=== PATIENT | female | born 1960 | race Caucasian/White ===

== ENCOUNTER 2016-09-04 12:43 | Outpatient (CLI) | payer MEDICARE, MEDICAID ==
[2016-09-04 14:06] LABS: Anion Gap 12 mmol/L (10-20); BUN (Urea Nitrogen) 17 mg/dL (9.8-20.1); Calc. Creatinine Clearance 0 mL/min (70-130); Calcium 8.7 mg/dL (7.8-10.44); Carbon Dioxide 22 mmol/L (22-29); Chloride 112 mmol/L (98-107); Estimated GFR-MDRD 49
== END 2016-09-04 12:44 | disposition home or self-care (01) ==
LOC: NAV LAB 12:43
PROVIDERS: ATTEND Family Medicine
DX: N18.3 Chronic kidney disease, stage 3 (moderate) (principal)
CPT/HCPCS: 36415; 80048; 81001

== ENCOUNTER 2017-08-09 15:29 | Outpatient (CLI) | payer MEDICARE, MEDICAID ==
--- NOTE | 2017-08-09 17:05 | RAD ---
TWO VIEW CHEST: History: Pneumonia. Comparison: Portable film of 06-05-17. FINDINGS: Lungs are well aerated and clear of infiltrate. No effusion. Heart and mediastinum unremarkable with aortic calcification again noted. IMPRESSION: No evidence of focal infiltrate. POS: [facility]
== END 2017-08-09 15:30 | disposition home or self-care (01) ==
LOC: NAV RAD 15:29
PROVIDERS: ATTEND Family Medicine
DX: J18.9 Pneumonia, unspecified organism (principal)
CPT/HCPCS: 71020

== ENCOUNTER 2017-12-24 10:56 | Outpatient (CLI) | payer MEDICARE, MEDICAID ==
[2017-12-24 12:00] LABS: Anion Gap 16 mmol/L (10-20); BUN (Urea Nitrogen) 29 mg/dL (9.8-20.1); Calc. Creatinine Clearance 0 mL/min (70-130); Calcium 9.1 mg/dL (7.8-10.44); Carbon Dioxide 27 mmol/L (22-29); Chloride 106 mmol/L (98-107); Estimated GFR-MDRD 16; Glucose 92 mg/dL (70-105); Potassium 3.5 mmol/L (3.5-5.1); Sodium 145 mmol/L (136-145)
[2017-12-24 12:11] LABS: Eosinophils 5 % (0-10); Hypochromia SLIGHT = 6-15 cells (100X) (0-5/hpf); Lymphocytes 26 % (21-51); MDiff Complete? YES; Mean Corpuscular HGB CONC 31.9 g/dL (32.0-36.0); Mean Corpuscular Hemoglobin 30.2 pg (27.0-31.0); Mean Corpuscular Volume 94.6 fl (81.0-99.0); Mean Platelet Volume 7.4 fL (7.4-10.4); Microcytosis SLIGHT = 6-15 cells (100X) (0-5/hpf); Monocytes 6 % (0-10); Neutrophil 61 % (42-75); Platelet Count 269 thou/uL (130-400); Poikilocytosis SLIGHT = 6-15 cells (100X) (0-5/hpf); RBC Distribution Width 11.7 % (11.5-14.5); Red Blood Cell (RBC) Count 2.64 mill/uL (4.20-5.40)
[2017-12-24 12:17] LABS: ALT (SGPT) 29 U/L (8-55); AST (SGOT) 20 U/L (5-34); Albumin 3.4 g/dL (3.5-5.0); Alkaline Phosphatase 84 U/L (40-150); Bilirubin, Total 0.5 mg/dL (0.2-1.2); Globulin 2.6 g/dL (2.4-3.5)
--- NOTE | 2017-12-24 13:20 | RAD ---
CHEST TWO VIEWS: History: Dyspnea. Comparison: 12-15-17 FINDINGS: Cardiac silhouette is within normal limits. Pulmonary vasculature is now engorged with mild bilateral perihilar and bibasilar infiltrates. Mediastinum is midline with aortic calcification and post-opera tive changes of the cervicothoracic junction of the spine. IMPRESSION: Interval development of mild pulmonary edema. POS: [facility]
== END 2017-12-24 10:57 | disposition home or self-care (01) ==
LOC: NAV LAB 10:56
PROVIDERS: ATTEND Family Medicine
DX: R06.09 Other forms of dyspnea (principal); N17.9 Acute kidney failure, unspecified; R53.81 Other malaise; J81.1 Chronic pulmonary edema
CPT/HCPCS: 36415; 71046; 80053; 85025

== ENCOUNTER 2019-12-22 22:22 | Emergency (ER) | payer MEDICARE, MEDICAID ==
[2019-12-22] MEDS ORDERED: Acetaminophen/Codeine 30-300mg Tablet ONE (23:03)
--- NOTE | 2019-12-22 23:25 | CT ---
Exam: Lumbar spine CT without contrast HISTORY: Fall. Back pain. FINDINGS: Small to moderate hiatal hernia is noted. Visualized lung parenchyma have no acute abnormality Appropriate attenuation the visualized solid organs. Atherosclerosis of a nonaneurysmal aorta. No ret roperitoneal lymphadenopathy or mass Visualized sacral ala and iliac wings are unremarkable. Sacral ala are preserved. Vacuum joint phenom enon in bilateral sacroiliac joints No spondylolisthesis. No spondylolysis. Lumbar spine vertebral body height is maintained. There is no lumbar spine fracture. 5 lumbar type vertebra. Limited evaluation the contents of the central spinal canal and neural foramina due to technique. T11-T12 and T12-L1: No significant central canal stenosis or significant neural foraminal narrowing L1-L2: No significant central canal stenosis or significant neural foraminal narrowing L2-L3: Broad-based disc bulge. Mild central canal stenosis. Bilaterally, neural foramina are patent L3-L4: No significant central canal stenosis or significant neural foraminal narrowing L4-L5: No significant central canal stenosis or significant neural foraminal narrowing L5-S1: Broad-based disc bulge abuts bilateral traversing S1 nerve roots. No significant central canal stenosis. Minimal bilateral neural foraminal narrowing IMPRESSION: 1. No fracture. 2. Encroachment upon bilateral subarticular zones at L5-S1. Disc material abuts but does not obscure either traversing S1 nerve root. 3. Hiatal hernia, incompletely evaluated
== END 2019-12-22 23:45 | disposition home or self-care (01) ==
LOC: NAV ERS 22:22
DX: S33.5XXA Sprain of ligaments of lumbar spine, initial encounter (principal); E66.9 Obesity, unspecified; I25.10 Atherosclerotic heart disease of native coronary artery without angina pectoris; E78.5 Hyperlipidemia, unspecified; E78.00 Pure hypercholesterolemia, unspecified; M19.90 Unspecified osteoarthritis, unspecified site; F41.9 Anxiety disorder, unspecified; F32.9 Major depressive disorder, single episode, unspecified; F17.210 Nicotine dependence, cigarettes, uncomplicated; Z79.82 Long term (current) use of aspirin; Z79.899 Other long term (current) drug therapy; W18.30XA Fall on same level, unspecified, initial encounter
CPT/HCPCS: 72131

== ENCOUNTER 2020-07-07 14:36 | Emergency (ER) | payer MEDICARE, MEDICAID ==
[2020-07-07] MEDS ORDERED: Ondansetron PF 4 MG/2 ML Vial ONE (15:03)
[2020-07-07] MEDS ORDERED: Morphine 4 MG/ML VIAL ONE (15:03)
--- NOTE | 2020-07-07 16:08 | RAD ---
LEFT ANKLE 3 VIEWS: HISTORY: Injury left ankle pain FINDINGS: Soft tissue swelling is present. The ankle mortise is maintained. No acute fracture or dislocation is identified. A plantar calcaneal spur is present.
--- NOTE | 2020-07-07 16:08 | RAD ---
RADIOGRAPH LEFTLEG TIBIA-FIBULA 2 VIEWS: DATE: 07/07/2020 HISTORY: Traumatic injury to left leg. FINDINGS: There is no evidence of fracture of tibia or fibula. IMPRESSION: Negative.
--- NOTE | 2020-07-07 16:12 | CT ---
CT CERVICAL SPINE NONCONTRAST: DATE: 07/07/2020 HISTORY: cervical trauma: 60-year-old female status post fall FINDINGS: There are no jumped or perched facets. There is no evidence of acute fracture. The vertebral body hei ghts are maintained. There is no prevertebral soft tissue swelling. There is ACDF hardware at C5, C6, and C7. IMPRESSION: 1. No evidence of acute fracture or acute traumatic subluxation. 2. Status post anterior cervical discectomy and fusion at C5-6-7.
--- NOTE | 2020-07-07 16:18 | CT ---
CT LUMBAR SPINE NONCONTRAST: DATE: 07/07/2020 HISTORY: 60-year-old female with acute traumatic low back pain due to fall. FINDINGS: There are 5 lumbar-type vertebrae. Alignment is normal. Vertebral body heights and disc spaces are ma intained. There is no evidence of fracture, significant osteophytes, pars interarticularis defect, or any other focal osseous abnormality. There are mild disc bulges at most or all levels. There is no high-grade central spinal canal stenosis or high-grade neural foraminal stenosis at any level. No high-grade facet DJD. No hematoma in the perivertebral spaces. IMPRESSION: Negative
[2020-07-07] MEDS ORDERED: Bacitracin 1 PK ONE (16:50)
== END 2020-07-07 17:05 | disposition home or self-care (01) ==
LOC: NAV ERS 14:36
DX: S39.012A Strain of muscle, fascia and tendon of lower back, initial encounter (principal); S80.12XA Contusion of left lower leg, initial encounter; E78.5 Hyperlipidemia, unspecified; I10 Essential (primary) hypertension; J44.9 Chronic obstructive pulmonary disease, unspecified; Z87.891 Personal history of nicotine dependence; W18.30XA Fall on same level, unspecified, initial encounter
CPT/HCPCS: 72125; 72131; 96374; 96375; J2270; J2405

== ENCOUNTER 2021-07-24 23:05 | Emergency (ER) | payer MEDICARE, MEDICAID ==
[2021-07-24] MEDS ORDERED: predniSONE 20 MG TAB ONE (23:24)
[2021-07-24] MEDS ORDERED: Famotidine 20 MG TAB ONE (23:24)
[2021-07-25] MEDS ORDERED: diphenhydrAMINE 50 MG/ML VIAL ONE (00:01)
[2021-07-25 01:08] LABS: #Neutrophils 4.5 thou/uL (1.40-6.50); %Basophils 0.3 % (0.0-1.0); %Eosinophils 0.8 % (0.0-10.0); %Lymphocytes 18.9 % (21.0-51.0); %Monocytes 5.7 % (0.0-10.0); %Neutrophils 74.3 % (42.0-75.0); Hemoglobin 12.1 g/dL (12.0-16.0); Manual Diff?? NO; Mean Corpuscular HGB CONC 31.1 g/dL (32.0-36.0); Mean Corpuscular Volume 99.6 fL (78.0-98.0); Mean Platelet Volume 8.2 fL (7.4-10.4); Platelet Count 183 thou/uL (130-400)
[2021-07-25 01:09] LABS: #Lymphocytes 1.1 thou/uL (1.20-3.40); #Monocytes 0.3 thou/uL (0.11-0.59)
[2021-07-25 01:18] LABS: ALT (SGPT) 11 U/L (8-55); AST (SGOT) 15 U/L (5-34); Albumin 3.6 g/dL (3.5-5.0); Alkaline Phosphatase 117 U/L (40-110); Anion Gap 12 mmol/L (10-20); BUN (Urea Nitrogen) 26 mg/dL (9.8-20.1); Bilirubin, Total 0.3 mg/dL (0.2-1.2); Calc. Creatinine Clearance 0 mL/min (70-130); Calcium 9.2 mg/dL (7.8-10.44); Carbon Dioxide 25 mmol/L (22-29); Chloride 109 mmol/L (98-107); Globulin 2.4 g/dL (2.4-3.5); Glucose 118 mg/dL (70-105); Magnesium 2.1 mg/dL (1.6-2.6); Potassium 3.7 mmol/L (3.5-5.1)
[2021-07-25 01:24] LABS: Sodium 142 mmol/L (136-145)
== END 2021-07-25 04:19 | disposition home or self-care (01) ==
LOC: NAV ERS 23:05
DX: L29.9 Pruritus, unspecified (principal); T36.1X5A Adverse effect of cephalosporins and other beta-lactam antibiotics, initial encounter; I10 Essential (primary) hypertension; E66.9 Obesity, unspecified; E78.5 Hyperlipidemia, unspecified; I25.10 Atherosclerotic heart disease of native coronary artery without angina pectoris; J44.9 Chronic obstructive pulmonary disease, unspecified; Z87.891 Personal history of nicotine dependence
CPT/HCPCS: 80053; 83605; 83735; 84484; 85025; 93005; 94760; 96374; J1200; J7512

== ENCOUNTER 2022-10-26 13:36 | Emergency (ER) | payer MEDICARE, MEDICAID ==
[~2022-10-26 13:36] MED LIST: Iopamidol 370 76% 100 ML VIAL ONE
[2022-10-26] MEDS ORDERED: Sodium Chloride 0.9% 1,000 ML ONE ×2 (14:21→16:03)
[2022-10-26] MEDS ORDERED: Ondansetron PF 4 MG/2 ML Vial ONE (14:21)
[2022-10-26] MEDS ORDERED: Gabapentin 300 MG CAP PO SCH (14:30)
[2022-10-26 14:50] LABS: #Monocytes 0.6 thou/uL (0.11-0.59); #Neutrophils 3.2 thou/uL (1.40-6.50); %Basophils 0.7 % (0.0-1.0); %Eosinophils 0.1 % (0.0-10.0); %Lymphocytes 20.2 % (21.0-51.0); Hemoglobin 12.8 g/dL (12.0-16.0); Mean Corpuscular HGB CONC 31.1 g/dL (32.0-36.0); Mean Corpuscular Hemoglobin 30.3 pg (27.0-31.0); Mean Corpuscular Volume 97.3 fl (78.0-98.0); Mean Platelet Volume 7.7 fL (7.4-10.4); Platelet Count 167 10x3/uL (130-400); RBC Distribution Width 13.6 % (11.5-14.5); Red Blood Cell (RBC) Count 4.22 mill/uL (4.20-5.40); White Blood Cell (WBC) Count 4.9 10x3/uL (4.8-10.8)
[2022-10-26 14:52] LABS: Bilirubin Moderate (Negative); Blood, Urine Negative (Negative); Glucose, Urine (Dipstick) Negative (Negative); Ketone, Urine Trace mg/dL (Negative); Leukocyte Trace (Negative); Nitrite Negative (Negative); Protein, Urine (Dipstick) 30 mg/dL (Neg-Trace); Specific Gravity, Urine 1.025 (1.005-1.030); Urobilinogen 0.2 mg/dL (Less than 2)
[2022-10-26 15:04] LABS: ALT (SGPT) 17 U/L (8-55); AST (SGOT) 20 U/L (5-34); Albumin 4.1 g/dL (3.4-4.8); Alkaline Phosphatase 139 U/L (40-110); Anion Gap 15 mmol/L (10-20); BUN (Urea Nitrogen) 15 mg/dL (9.8-20.1); Bilirubin, Total 0.5 mg/dL (0.2-1.2); Calc. Creatinine Clearance 0 mL/min (70-130); Calcium 9.5 mg/dL (7.8-10.44); Carbon Dioxide 26 mmol/L (23-31); Chloride 103 mmol/L (98-107); Estimated GFR 56; Globulin 2.5 g/dL (2.4-3.5); Glucose 95 mg/dL (80-115); Lipase 19 U/L (8-78); Potassium 3.9 mmol/L (3.5-5.1); Protein, Total 6.6 g/dL (5.8-8.1); Sodium 140 mmol/L (136-145)
[2022-10-26 15:12] LABS: Bacteria/HPF 2+ HPF (None Seen); Clarity Hazy (Clear); RBC/HPF 0-3 HPF (0-3); Transitional Epithelial 0-3 HPF (None Seen)
[2022-10-26] MEDS ORDERED: Nitrofurantoin Macrocrystal 50 MG CAP ONE (16:03)
== END 2022-10-26 17:09 | disposition home or self-care (01) ==
LOC: NAV ERS 13:36
DX: A08.4 Viral intestinal infection, unspecified (principal); E86.0 Dehydration; N39.0 Urinary tract infection, site not specified; K21.9 Gastro-esophageal reflux disease without esophagitis; E78.00 Pure hypercholesterolemia, unspecified; J44.9 Chronic obstructive pulmonary disease, unspecified; I12.9 Hypertensive chronic kidney disease with stage 1 through stage 4 chronic kidney disease, or unspecified chronic kidney disease; N18.30 Chronic kidney disease, stage 3 unspecified; F17.210 Nicotine dependence, cigarettes, uncomplicated
CPT/HCPCS: 71045; 74177; 80053; 81003; 81015; 83690; 85025; 87086; 96361; 96374; J2405; J7050; Q9967

== ENCOUNTER 2023-04-28 13:32 | Emergency (ER) | payer MEDICARE, MEDICAID ==
[2023-04-28] MEDS ORDERED: Morphine 4 MG/ML VIAL ONE (14:07)
[2023-04-28] MEDS ORDERED: Ondansetron ODT 4 MG TAB ONE (14:07)
[2023-04-28] MEDS ORDERED: Acetaminophen 500 MG TAB ONE (14:36)
[2023-04-28 18:17] LABS: Hematocrit 36.9 % (36.0-47.0); Hemoglobin 11.3 g/dL (12.0-16.0); Mean Corpuscular HGB CONC 30.6 g/dL (32.0-36.0); Mean Corpuscular Hemoglobin 27.6 pg (27.0-31.0); Mean Corpuscular Volume 90.4 fl (78.0-98.0); Mean Platelet Volume 7.6 fL (7.4-10.4); Platelet Count 200 10x3/uL (130-400); RBC Distribution Width 16.9 % (11.5-14.5); Red Blood Cell (RBC) Count 4.08 mill/uL (4.20-5.40); White Blood Cell (WBC) Count 4.5 10x3/uL (4.8-10.8)
[2023-04-28 18:20] LABS: Bilirubin Negative (Negative); Blood, Urine Negative (Negative); Clarity Clear (Clear); Glucose, Urine (Dipstick) Negative (Negative); Ketone, Urine Negative (Negative); Leukocyte Trace (Negative); Nitrite Negative (Negative); Protein, Urine (Dipstick) Negative (Neg-Trace); Specific Gravity, Urine 1.015 (1.005-1.030); Urobilinogen 0.2 mg/dL (Less than 2); pH, Urine 7.5 (5.0-9.0)
[2023-04-28 18:23] LABS: Albumin 4.2 g/dL (3.4-4.8); Anion Gap 15 mmol/L (10-20); BUN (Urea Nitrogen) 15 mg/dL (9.8-20.1); Calc. Creatinine Clearance 0 mL/min (70-130); Calcium 9.5 mg/dL (7.8-10.44); Carbon Dioxide 25 mmol/L (23-31); Chloride 101 mmol/L (98-107); Estimated GFR 46; Glucose 80 mg/dL (80-115); Magnesium 1.8 mg/dL (1.6-2.6); Phosphorus 2.6 mg/dL (2.3-4.7); Potassium 4.7 mmol/L (3.5-5.1); Sodium 136 mmol/L (136-145)
[2023-04-28 22:58] LABS: Creatinine, Urine 22.94 mg/dL (47-110); Protein, Urine Random Quant Less than 10 mg/dL (1-14)
== END 2023-04-28 14:40 | disposition home or self-care (01) ==
LOC: NAV ERS 13:32
DX: S09.90XA Unspecified injury of head, initial encounter (principal); S16.1XXA Strain of muscle, fascia and tendon at neck level, initial encounter; K21.9 Gastro-esophageal reflux disease without esophagitis; E78.5 Hyperlipidemia, unspecified; J44.9 Chronic obstructive pulmonary disease, unspecified; I12.9 Hypertensive chronic kidney disease with stage 1 through stage 4 chronic kidney disease, or unspecified chronic kidney disease; N18.30 Chronic kidney disease, stage 3 unspecified; F17.290 Nicotine dependence, other tobacco product, uncomplicated; Y04.8XXA Assault by other bodily force, initial encounter; Z79.82 Long term (current) use of aspirin; Z79.899 Other long term (current) drug therapy
CPT/HCPCS: 70450; 72125; 80048; 81003; 82040; 82306; 82570; 83735; 83970; 84100; 84156; 85027; 96372; J2270; Q0162